=== PATIENT | female | born 1950 | race Caucasian/White ===

== ENCOUNTER → 2022-08-12 08:11 | Outpatient (CLI) | payer MEDICARE, SELFPAY ==
--- NOTE | 2022-08-12 | DI.US.S_ITS ---
PROCEDURE: US SOFT TISSUE HEAD AND NECK INDICATIONS: ENLARGED LYMPHNODES TECHNIQUE: Real-time scanning was performed of the neck region of interest, with image documentation. COMPARISON: None. FINDINGS: Multiple morphologically normal appearing lymph nodes seen bilaterally with the largest measuring up to 7 mm. IMPRESSION: Multiple bilateral morphologically normal appearing and sized lymph nodes, largest measuring up to 7 mm. Dictated by: Dwight Lorenz RR Interpreted: Hugo Barker MD on 08/12/2022 at 9:32 Transcribed by: CLARE on 08/12/2022 at 9:34 Approved by: Jaun Barker M.D. on 08/12/2022 at 12:36
[2022-08-12 09:49] LABS: Add Manual Diff / Slide Review NO; Basophils Absolute Auto 0 /uL (0-100); Basophils Percent Auto 0.9 % (0-2); Eosinophils Absolute Auto 100 /uL (0-450); Eosinophils Percent Auto 2.6 % (2-4); Hematocrit 40.2 % (36-46); Hemoglobin 13.5 g/dL (12.0-16.0); Lymphocytes Absolute Auto 1100 /uL (1100-4500); Lymphocytes Percent Auto 21.8 % (25-40); Mean Corpuscular HGB Conc 33.5 % (30-36); Mean Corpuscular Hemoglobin 30.6 PG (26-34); Mean Corpuscular Volume 91.4 fL (80-100); Monocytes Absolute Auto 400 /uL (0-900); Monocytes Percent Auto 8.3 % (3-14); Neutrophils Absolute Auto 3200 /uL (1500-7000); Neutrophils Percent Auto 66.4 % (50-75); Platelet Count 192 X10^3/uL (150-400); Red Blood Cell Count 4.39 X10^6/uL (4.0-5.2); Red Cell Distribution Width 13.3 % (11.6-14.8); White Blood Cell Count 4.9 X10^3/uL (4.5-11.0)
[2022-08-12 10:35] LABS: Alanine Aminotransferase 21 IU/L (<35); Albumin Globulin Ratio 1.4 (1.0-2.8); Alkaline Phosphatase 62 U/L (38-126); Aspartate Aminotransferase 27 IU/L (14-36); BUN Creatinine Ratio 25.3 (6-22); Bilirubin Total 0.5 mg/dL (0.2-1.3); Blood Urea Nitrogen 21 mg/dL (7-17); Calcium 8.7 mg/dL (8.4-10.2); Carbon Dioxide 30 mmol/L (22-32); Chloride 99 mmol/L (98-107); Estimated Glomerular Filt Rate > 60 mL/min (>60); Globulin 2.8 g/dL (1.7-4.1); Glucose 75 mg/dL (80-110); HEMOLYSIS < 15 (0-50); Potassium 3.9 mmol/L (3.4-5.1); Sodium 135 mmol/L (137-145); Total Protein 6.8 g/dL (6.3-8.2)
== END ==
PROVIDERS: Referring Provider Family Medicine; Visit Provider Family Medicine
DX: R59.9 Enlarged lymph nodes, unspecified (principal)
CPT/HCPCS: 36415; 76536; 80053; 85025

== ENCOUNTER → 2022-11-12 09:16 | Outpatient (CLI) | payer MEDICARE, SELFPAY ==
--- NOTE | 2022-11-12 | DI.US.S_ITS ---
LIMITED ULTRASOUND OF LEFT BREAST: 11/12/2022 CLINICAL: Patient returns today to evaluate a focal asymmetry in the left breast. Comparison is made to exams dated: 11/12/2022 mammogram - [facility], 10/18/2022 mammogram, 09/06/2021 mammogram, 07/20/2020 mammogram, and 06/03/2019 mammogram - outside facility. Color flow ultrasound of the left breast was performed. Roman scale images of the real-time examination were reviewed. No sonographic finding to correspond to the patient's resolved screening mammographic asymmetry. Incidentally, there is a dilated duct in the left breast central to the nipple in the retroareolar region containing an ovoid avascular focus of debris. Color flow imaging demonstrates that there is an adjacent vascularity. No related nipple complaints. IMPRESSION: PROBABLY BENIGN There is no abnormality seen in the left breast to correspond with the resolved mammography asymmetry in the posterior depth in the lateral aspect which is most consistent with normal fibroglandular tissue. The incidental dilated duct containing debris and is probably benign. A follow-up left mammogram and an ultrasound in 6 months is recommended to demonstrate stability of the region of resolved asymmetry and incidental dilated duct. Findings and recommendations were conveyed to the patient at time of exam. This exam was interpreted at Station ID: [id number]. Electronically Signed By: Rohini stewart/:11/15/2022 11:21:54 Entry: - 11/15/2022 11:21:54 letter sent: Followup Recommended Ultrasound BI-RADS: 3 Probably benign
--- NOTE | 2022-11-12 | DI.MG.S_ITS ---
UNILATERAL LEFT DIGITAL DIAGNOSTIC MAMMOGRAM 3D/2D WITH ADDITIONAL VIEWS: 11/12/2022 CLINICAL: Additional evaluation requested from prior study. Comparison is made to exams dated: 10/18/2022 mammogram, 09/06/2021 mammogram, and 07/20/2020 mammogram - outside facility. The left breast is heterogeneously dense, which may obscure small masses (category c / 51-75% glandular tissue). Prior asymmetry is no longer seen in the left breast in the posterior depth in the lateral aspect. This presumably represents superimposed breast tissue. No significant masses, calcifications, or other findings are seen in the breast. IMPRESSION: INCOMPLETE: NEEDS ADDITIONAL IMAGING EVALUATION Resolution of screening mammography abnormality with additional views. Ultrasound evaluation to confirm resolution is recommended and was performed immediately following this exam. Based on the Tyrer Cuzick model (a risk assessment model) the patient's lifetime risk is 10.4% and her 10 year risk is 7.8%. According to the ACR, ACS, and NCCN guidelines, an annual breast MRI exam along with mammogram is recommended if the patient's lifetime risk is 20% or greater. This exam was interpreted at Station ID: [id number]. NOTE: For mammograms, a report in lay terms will be sent to the patient. Approximately 15% of breast malignancies will not be visualized mammographically. In the management of a palpable breast mass, a negative mammogram must not discourage biopsy of a clinically suspicious lesion. Electronically Signed By: Rohini stewart/:11/12/2022 15:42:58 ACR BI-RADS Category 0: Incomplete 3340F
== END ==
PROVIDERS: Referring Provider Internal Medicine; Visit Provider Internal Medicine
DX: R92.8 Other abnormal and inconclusive findings on diagnostic imaging of breast (principal); N60.42 Mammary duct ectasia of left breast
CPT/HCPCS: 76642; 77065; G0279

== ENCOUNTER → 2023-05-22 08:57 | Outpatient (CLI) | payer MEDICARE, SELFPAY ==
--- NOTE | 2023-05-22 | DI.US.S_ITS ---
LIMITED ULTRASOUND OF LEFT BREAST AND AXILLA: 05/22/2023 CLINICAL: Patient returns today to evaluate an asymmetry in the left breast. Comparison is made to exams dated: 05/22/2023 mammogram, 11/12/2022 ultrasound, 11/12/2022 mammogram - [facility], 10/18/2022 mammogram, 09/06/2021 mammogram, and 07/20/2020 mammogram - outside facility. Color flow and real-time ultrasound of the left breast 4 o'clock, retroareolar, and axilla regions were performed. There is again seen a focally dilated duct in the left breast 4 o'clock retroareolar. There is 3 x 4 x 2 mm non vascular hypoechoic area within the duct. Previously this area measured up to 5 mm on ultrasound on 11/12/2022. No definite mammographic correlate for this finding. No abnormal lymph nodes are seen in the left axilla. IMPRESSION: PROBABLY BENIGN Left breast: Left breast focally dilated duct at 4 o'clock retroareolar region. Decreased size of hypoechoic non-vascular area within the duct since prior ultrasound 11/12/2022. Finding may represent debris within the duct and is probably benign. Additionally, patient reports no nipple symptoms. Recommend left breast mammogram and ultrasound in 6 months to demonstrate stability 1 year stability. Right breast: No mammographic evidence of malignancy. Patient reports intermittent and diffuse right breast pain and was without symptoms at time of imaging. Recommend right breast screening mammogram in 1 year. Diffuse, non-focal symptoms, such as pain or fullness are typically benign. Clinical follow-up is recommended, and further management of these symptoms should be based on the results of clinical evaluation. If diffuse symptoms persist or become more focal in nature, further clinical evaluation should be considered. Findings and recommendations were conveyed to the patient during today's evaluation. This exam was interpreted at Station ID: [id number]. Electronically Signed By: Adele Macario M.D., PH.D eb/:05/22/2023 14:02:02 Entry: - 05/22/2023 14:02:02 letter sent: Followup Recommended Ultrasound BI-RADS: 3 Probably benign
--- NOTE | 2023-05-22 | DI.MG.S_ITS ---
BILATERAL DIGITAL DIAGNOSTIC MAMMOGRAM 3D/2D: 05/22/2023 CLINICAL: Patient returns for a 6 month follow up of the left breast. Right breast pain. Comparison is made to exams dated: 11/12/2022 mammogram - [facility], 10/18/2022 mammogram, 09/06/2021 mammogram, 07/20/2020 mammogram, and 06/03/2019 mammogram - outside facility. Both breasts are heterogeneously dense, which may obscure small masses (category c / 51-75% glandular tissue). No significant masses, calcifications, or other findings are seen in either breast. Previously described asymmetry in the left breast posterior outer region is again not seen on current mammogram. IMPRESSION: INCOMPLETE: NEEDS ADDITIONAL IMAGING EVALUATION Left breast: No mammographic evidence of malignancy. Left breast ultrasound is recommended for 6 month follow-up of ultrasound only finding, which is scheduled to immediately follow this exam. Right breast: No mammographic evidence of malignancy. Patient reports intermittent and diffuse right breast pain, and was without symptoms and time of imaging, Therefore, no additional diagnostic views are indicated. Recommend right breast screening mammogram in 1 year. Diffuse, non-focal symptoms, such as pain or fullness are typically benign. Clinical follow-up is recommended, and further management of these symptoms should be based on the results of clinical evaluation. If diffuse symptoms persist or become more focal in nature, further clinical evaluation should be considered. Based on the Tyrer Cuzick model (a risk assessment model) the patient's lifetime risk is 9.8% and her 10 year risk is 8.1%. According to the ACR, ACS, and NCCN guidelines, an annual breast MRI exam along with mammogram is recommended if the patient's lifetime risk is 20% or greater. This exam was interpreted at Station ID: [id number]. NOTE: For mammograms, a report in lay terms will be sent to the patient. Approximately 15% of breast malignancies will not be visualized mammographically. In the management of a palpable breast mass, a negative mammogram must not discourage biopsy of a clinically suspicious lesion. Electronically Signed By: Adele Macario M.D., PH.D eb/:05/22/2023 14:05:32 Entry: - 05/22/2023 14:05:32 ACR BI-RADS Category 0: Incomplete 3340F
== END ==
LOC: MAMMO 08:58
PROVIDERS: Referring Provider Internal Medicine; Visit Provider Internal Medicine
DX: R92.8 Other abnormal and inconclusive findings on diagnostic imaging of breast (principal); N60.42 Mammary duct ectasia of left breast
CPT/HCPCS: 76642; 77066; G0279